=== PATIENT | male | born 1955 | race Hispanic/Latino ===

== ENCOUNTER 2019-02-14 07:18 | Emergency (ER) | payer OTHER, MEDICARE ==
[2019-02-15] MEDS ORDERED: METF-446 PO (16:33)
[2019-02-15] MEDS ORDERED: LEVO25TA54 PO (21:02)
[2019-02-15] MEDS ORDERED: AMLO1CAP11 PO (21:02)
[2019-02-15] MEDS ORDERED: TIMO5SOL10 OP (21:02)
[2019-02-15] MEDS ORDERED: OMEG-148 PO (21:02)
[2019-02-15] MEDS ORDERED: LIRA0.6P2 SQ (21:02)
[2019-02-15] MEDS ORDERED: EMPA10TA PO (21:02)
[2019-02-15] MEDS ORDERED: SIMV20TA6 PO (21:02)
== END 2019-02-14 08:35 | disposition home or self-care (01) ==
LOC: EDH 07:18
DX: S80.02XA Contusion of left knee, initial encounter (principal); S80.01XA Contusion of right knee, initial encounter; I10 Essential (primary) hypertension; E11.9 Type 2 diabetes mellitus without complications; E78.5 Hyperlipidemia, unspecified; Z72.0 Tobacco use; W18.39XA Other fall on same level, initial encounter; Y93.01 Activity, walking, marching and hiking; Y92.89 Other specified places as the place of occurrence of the external cause; Y99.8 Other external cause status

== ENCOUNTER → 2025-01-07 | Emergency (ER) | payer OTHER, MEDICARE, MEDICAID ==
[~2025-01-07] VITALS: Ht 157.5 cm; Wt 104.3 kg
[~2025-01-07] MED LIST: AMLO-73 PO; EMPA10TA PO; LEVO25TA54 PO; LIRA0.6P2 SQ; METF-446 PO; OMEG-148 PO; SIMV-43 PO; TIMO5SOL10 OP
--- NOTE | 2025-01-07 13:50 | EKG ---
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
[2025-01-07 14:14] LABS: BASOPHILS # (AUTO) 0.02 K/uL (0.00-0.20); BASOPHILS % (AUTO) 0.3 % (0.0-5.0); EOSINOPHILS # (AUTO) 0.09 K/uL (0.00-0.70); EOSINOPHILS % (AUTO) 1.4 % (0.0-8.0); HEMATOCRIT 41.5 % (42-54); IMMATURE GRANULOCYTE ABSOLUTE 0.01 K/uL (0-1); LYMPHOCYTES # (AUTO) 2.3 K/uL (1.0-4.8); LYMPHOCYTES % (AUTO) 36.4 % (21.0-51.0); MEAN CORPUSCULAR HEMOGLOBIN 27.3 pg (27.0-33.0); MEAN CORPUSCULAR VOLUME 82.8 fL (79-99); MONOCYTES # (AUTO) 0.5 K/uL (0.1-1.0); MONOCYTES % (AUTO) 7.6 % (3.0-13.0); NEUTROPHILS # (AUTO) 3.4 K/uL (1.8-7.7); NEUTROPHILS % (AUTO) 54.1 % (40.0-77.0); PLATELET COUNT (AUTO) 228 K/uL (130-400); RED BLOOD CELL COUNT(AUTO) 5.01 MIL/uL (4.50-6.20); RED CELL DISTRIBUTION WIDTH 14.3 % (11.0-15.5); WHITE BLOOD COUNT (AUTO) 6.2 K/uL (4.8-10.8)
[2025-01-07] MEDS: LACTATED RINGERS 1000ML 1,000 ML IV ONE (14:22)
[2025-01-07 14:25] LABS: CREATININE 0.6 mg/dL (0.5-1.3); INR 1.03 (0.85-1.15); POTASSIUM 3.8 mmol/L (3.5-5.1); PROTHROMBIN TIME 10.9 SEC (9.6-11.6)
[2025-01-07 14:26] LABS: PARTIAL THROMBOPLASTIN TIME 25.8 SEC (26.3-35.5)
[2025-01-07 14:30] LABS: MAGNESIUM 1.7 mg/dL (1.80-2.40)
[2025-01-07 14:44] LABS: B-TYPE NATRIURETIC PEPTIDE 17 pg/mL (0-100)
[2025-01-07 14:50] LABS: APPEARANCE,URINE CLEAR (CLEAR); BILIRUBIN,URINE NEGATIVE (NEGATIVE); COLOR,URINE YELLOW (YELLOW); GLUCOSE, URINE (UA) >=1000 mg/dL (NEGATIVE); KETONES,URINE 5 mg/dL (NEGATIVE); LEUKOCYTE ESTERASE ,URINE NEGATIVE Leu/uL (NEGATIVE); NITRATE,URINE NEGATIVE (NEGATIVE); OCCULT BLOOD,URINE NEGATIVE (NEGATIVE); PH,URINE 6.5 (5.0-8.0); PROTEIN,URINE 10 mg/dL (NEGATIVE)
[2025-01-07 15:20] LABS: ADD UA MICROSCOPIC YES
[2025-01-07 15:22] LABS: BACTERIA,URINE RARE /HPF (None Seen); MUCUS,URINE RARE LPF (None Seen); SQUAMOUS EPITHELIAL CELL,UR FEW /HPF (0-2); YEAST,URINE BUDDING FEW /HPF (None Seen)
[2025-01-07 15:35] VITALS: BP 158/76; PULSE 56; RESP 16; TEMP 98.3; O2SAT 98
--- NOTE | 2025-01-07 15:49 | HMCIMG ---
Exam Type: CHEST 1VW Clinical Information: vertigo Comparison: None Findings: The lungs are clear of infiltrates. The heart is normal in size. The bony and soft tissue structures of the chest are unremarkable. Impression: Clear lungs.
--- NOTE | 2025-01-07 15:52 | ERN ---
General Chief Complaint: Dizzy/Light Headed Stated Complaint: HIGH GLUCOSE, DIZZY Time Seen by MD: 13:18 Source: patient History of Present Illness Initial Comments Patient is a 69-year-old male coming in to be evaluated. For family member patient has been feeling sluggish ever since they discontinued one of his diabetic medications. Patient was evaluated urgent care and was found to have elevated blood glucose so I advised him to come to the ER to be evaluated. Patient is mentally incapacitated. Allergies: Coded Allergies: No Known Drug Allergies (Verified Allergy, Unknown, 02/15/19) Home Meds Reported Medications Liraglutide (Victoza 3-Fito) 0.6 Mg/0.1 Ml Pen.injctr, 1.8 MG SQ DAILY 02/15/19 Timolol Maleate (Timolol Maleate) 5 Ml Analisa.gel, 5 ML OP BID 02/15/19 Empagliflozin (Jardiance) 10 Mg Tablet, 10 MG PO DAILY, TAB 02/15/19 [place]-3S/Dha/Epa/Fish Oil (Fish Oil 1,000 mg Softgel) 1 Each Capsule, 1 EACH PO DAILY, CAP 02/15/19 Amlodipine Besylate/Benazepril (Amlodipine-Benazepril 5-10 mg) 1 Each Capsule, 1 EACH PO DAILY, CAP 02/15/19 Levothyroxine Sodium (Levothyroxine Sodium) 25 Mcg Tablet, 25 MCG PO DAILY, TAB 02/15/19 Simvastatin (Simvastatin) 20 Mg Tablet, 20 MG PO HS, TAB 02/15/19 Metformin HCl (Metformin HCl) 1,000 Mg Tablet, 1000 MG PO BID, TAB 02/15/19 Past Medical History Past Medical History: Diabetes-Type II, High Cholesterol, Hypertension Medical History Other: MENTAL DELAY PER SISTER Past Surgical History: None ROS Dictation CONSTITUTIONAL: No chills, no fever, weakness, no diaphoresis, no malaise. HEAD/FACE: No signs of trauma. EENT: No eye pain, no blurred vision, no tearing, no double vision, no ear pain, no ear discharge, no nose pain, no nasal congestion, no throat pain, no throat swelling, no mouth pain. RESPIRATORY: No cough, no orthopnea, no SOB, no stridor, no wheezing. CARDIOVASCULAR: No chest pain, no edema, no palpitations, no syncope. GASTROINTESTINAL/ABDOMINAL: No abdominal pain, no constipation, no diarrhea, no nausea, no vomiting. GENITOURINARY: No abnormal discharge, no dysuria, no frequent urination, no hematuria. No complaints of pain in the genitals. MUSCULOSKELETAL: No back pain, no gout, no joint pain, no joint swelling, no muscle pain, no muscle stiffness, no neck pain. INTEGUMENTARY: No change in color, no change in hair/nails, no dryness, no lesion, no lumps, no rash. NEUROLOGICAL/PSYCH: No anxiety, not depressed, no emotional problem, no headache, no numbness, no pre-existing deficit, no history of seizures, no tremors, no weakness. HEMATOLOGIC/LYMPHATIC: Not anemic, no history of blood clots, no apparent bleeding, no bruising, glands not swollen. All Systems Negative, Except as Noted. Physical Exam Physical Exam Dictation VITAL SIGNS: Reviewed. GENERAL APPEARANCE: Alert, oriented x3, no acute distress, obese. HEAD AND FACE: Non-traumatic. EYES: PERRL, pink conjunctivas, eyelid no trauma, anterior chamber clear. EARS: Pinnas intact and no signs of trauma or erythema. Ear canals clear and no discharge. TMs no erythema. NOSE: No discharge, no bleeding. OROPHARYNX: Mouth normal, teeth no caries, tongue pink. Pharynx clear, no erythema. Tonsils no exudates, no abscesses noted. Mucous membrane moist. NECK: Supple, non-tender, no thyromegaly, no masses, no JVD, no bruits. BREAST: Deferred. CHEST: No tenderness, no crepitus, no paradoxical movement, no retractions. LUNGS: Clear, well-ventilated, symmetric, no rales, no wheezing, no rhonchi, no stridor, good breath sounds bilaterally. HEART: Regular rate, regular rhythm, no murmur, no gallops. VASCULAR: No peripheral edema. ABDOMEN: Soft, positive bowel sounds, nondistended, no guarding, nontender, no rebound, no masses no hepatomegaly, no splenomegaly, no Mendez's sign, no hernias. RECTAL: Deferred. GENITAL: Deferred. NEUROLOGICAL: Normal speech, gross motor function intact, gross sensory function intact. MUSCULOSKELETAL: Neck nontender, full range of motion, back nontender, full range of motion. EXTREMITIES: Nontender, full range of motion. SKIN: Color pink, dry, no turgor, no rash, no lacerations, no abrasions, no contusions. LYMPHATICS: Deferred. Results Laboratory and Microbiology Lab and Micro Result Laboratory Tests Test 01/07/25 13:35 01/07/25 14:00 01/07/25 14:07 Whole Blood Glucose 290 MG/DL (70-110) H Urine Color YELLOW (YELLOW) Urine Appearance CLEAR (CLEAR) Urine pH 6.5 (5.0-8.0) Urine Specific [place] 1.036 (1.001-1.031) Urine Protein 10 mg/dL (NEGATIVE) H Urine Glucose (UA) >=1000 mg/dL (NEGATIVE) H Urine Ketones 5 mg/dL (NEGATIVE) H Urine Occult Blood NEGATIVE (NEGATIVE) Urine Nitrate NEGATIVE (NEGATIVE) Urine Bilirubin NEGATIVE mg/dL (NEGATIVE) Urine Urobilinogen 4.0 mg/dL (0.2-1.0) H Urine Leukocyte Esterase NEGATIVE Rony/uL Urine RBC 11-25 /HPF (0-1) H Urine WBC 6-10 /HPF (0-1) H Urine Squamous Epithelial Cells FEW /HPF (0-2) Urine Bacteria RARE /HPF (None Seen) Urine Yeast FEW /HPF (None Seen) White Blood Count 6.2 K/uL (4.8-10.8) Red Blood Count 5.01 MIL/uL (4.50-6.20) Hemoglobin 13.7 g/dL (14.0-18.0) L Hematocrit 41.5 % (42-54) L Mean Corpuscular Volume 82.8 fL (79-99) Mean Corpuscular Hemoglobin 27.3 pg (27.0-33.0) Mean Corpuscular Hemoglobin Concent 33.0 g/dL (32.0-36.0) Red Cell Distribution Width 14.3 % (11.0-15.5) Platelet Count 228 K/uL (130-400) Mean Platelet Volume 10.6 fL (7.5-10.5) H Immature Granulocyte % (Auto) 0.2 % (0-1) Neutrophils (%) (Auto) 54.1 % (40.0-77.0) Lymphocytes (%) (Auto) 36.4 % (21.0-51.0) Monocytes (%) (Auto) 7.6 % (3.0-13.0) Eosinophils (%) (Auto) 1.4 % (0.0-8.0) Basophils (%) (Auto) 0.3 % (0.0-5.0) Neutrophils # (Auto) 3.4 K/uL (1.8-7.7) Lymphocytes # (Auto) 2.3 K/uL (1.0-4.8) Monocytes # (Auto) 0.5 K/uL (0.1-1.0) Eosinophils # (Auto) 0.09 K/uL (0.00-0.70) Basophils # (Auto) 0.02 K/uL (0.00-0.20) Absolute Immature Granulocyte (auto 0.01 K/uL (0-1) Nucleated Red Blood Cells 0.0 % (0.0-0.19) Prothrombin Time 10.9 SEC (9.6-11.6) Prothromb Time International Ratio 1.03 (0.85-1.15) Activated Partial Thromboplast Time 25.8 SEC (26.3-35.5) L Sodium Level 131 mmol/L (136-145) L Potassium Level 3.8 mmol/L (3.5-5.1) Chloride Level 97 mmol/L (101-111) L Carbon Dioxide Level 29 mmol/L (21-32) Blood Urea Nitrogen 7 mg/dL (7-18) Creatinine 0.6 mg/dL (0.5-1.3) Glomerular Filtration Rate Calc 106 mL/min (>90) Random Glucose 288 mg/dL (70-105) H Total Calcium 8.8 mg/dL (8.5-10.1) Magnesium Level 1.70 mg/dL (1.80-2.40) L Total Creatine Kinase 99 U/L (21-232) # Troponin I High Sensitivity 8 ng/L (4-75) B-Type Natriuretic Peptide 17 pg/mL (0-100) Labs Reviewed?: Yes MDM MDM: Differential diagnosis: Generalized body weakness, dehydration, UTI, hypoglycemia, Patient is a 69-year-old male coming in to be evaluated for generalized body weakness. Patient does has a history of mentally incapacitation but family member is able to communicate with them. Per family member patient has been feeling weakness since diabetic medications it was discontinued. He still lives on one medication but per family member she believes that the elevated blood glucose RDI hydrating the patient. Patient was hydrated with IV fluids. We will be discharged in stable condition with a diagnosis of dehydration hyperglycemia. ED Course Orders Procedure Category Date Status Time Cbc With Differential LAB 01/07/25 Complete 13:44 Prothrombin Time With LAB 01/07/25 Complete INR 13:44 B-Type Natriuretic LAB 01/07/25 Complete Peptide 13:44 Chest 1vw RAD 01/07/25 Taken 13:44 12 Lead Ekg Tracing- EKG 01/07/25 Resulted Technical 13:44 Lactated Ringers PHA 01/07/25 Complete 1000ml (Lactated 14:00 Magnesium LAB 01/07/25 Complete 13:44 Creatine Kinase, Total LAB 01/07/25 Complete 13:44 Troponin I High LAB 01/07/25 Complete Sensitivity 13:44 Urinalysis Profile LAB 01/07/25 Complete 13:44 Partial LAB 01/07/25 Complete Thromboplastin Time 13:44 Basic Metabolic Panel LAB 01/07/25 Complete 13:44 Culture Urine ARMAND 01/07/25 Logged 15:26 Current Medications Medications (Trade) Dose Ordered Sig/Brenda Route PRN Reason Start Time Stop Time Status Last Admin Dose Admin Lactated Ringer's 1,000 ml @ 0 mls/hr ONCE ONCE IV 01/07/25 14:00 01/07/25 14:01 DC 01/07/25 14:22 Vital Signs Date Time Temp Pulse Resp B/P (MAP) Pulse Ox O2 Delivery O2 Flow Rate FiO2 01/07/25 15:35 98.2 56 16 158/76 98 Room Air* 0 21 01/07/25 14:14 97.9 64 14 154/72 98 Room Air* 0 21 01/07/25 13:19 98.6 99 16 133/62 97 Room Air 0 DX & DISP Disposition: Discharge Departure Impression: Primary Impression: Diabetes mellitus with hyperglycemia Additional Impression: Dehydration Condition: Stable Additional Instructions: FOLLOW-UP WITH PRIMARY CARE PROVIDER IN 1 TO 2 DAYS. TAKE MEDICATIONS DIRECTED HERE IN THE EMERGENCY ROOM. OKAY TO CONTINUE HOME MEDICATIONS UNLESS OTHERWISE DISCUSSED DURING YOUR VISIT IN THE EMERGENCY ROOM TODAY. RETURN TO YOUR NEAREST EMERGENCY ROOM IF SYMPTOMS WORSEN OR IF THERE IS NO IMPROVEMENT. CALL 911 IF YOU NEED IMMEDIATE ASSISTANCE. TAKE TYLENOL [id number] NEEDED AND IF NO CONTRAINDICATIONS ARE PRESENT. INCREASE ORAL HYDRATION. A WOUND CULTURE OR URINE CULTURE WAS ORDERED HERE IN THE EMERGENCY ROOM DEPARTMENT PLEASE FOLLOW-UP WITH PRIMARY CARE PROVIDER AND ADVISE THEM TO GET REPEAT PORTS FROM OUR FACILITY. IF YOU HAD ANY KO WRAP/SPLINTS THAT WERE APPLIED HERE, PLEASE DO NOT REMOVE THEM UNTIL YOU SEE YOUR PRIMARY CARE OR SPECIALTY. Referrals: Referrals: SHAMAR HARRELL (PCP) Time of Disposition: 15:52 GIULIANO WEBB MD Jan 07, 2025 15:52
--- NOTE | 2025-01-07 15:59 | NUR ---
PT STABLE NO DISTRESS, VITALS WNL NO C/O PAIN, DISCHARGE INSTRUCTIONS GIVEN TO SISTER AT BEDSIDE VERBALIZED UNDERSTANDING, IV WAS REMOVED CATHETER INTACT. PT TAKEN OUT IN W/C DRIVEN HOME BY SISTER. NO NEW RX AT THIS TIME.
== END ==
LOC: EEVIPCON 13:17 → EDH 13:17
DX: E11.65 Type 2 diabetes mellitus with hyperglycemia (principal); E86.0 Dehydration; I10 Essential (primary) hypertension; E78.00 Pure hypercholesterolemia, unspecified; R06.00 Dyspnea, unspecified; R55 Syncope and collapse; Z79.84 Long term (current) use of oral hypoglycemic drugs; Z79.85 Long-term (current) use of injectable non-insulin antidiabetic drugs; Z79.890 Hormone replacement therapy; Z79.899 Other long term (current) drug therapy
CPT/HCPCS: 99285; 82550; 83735; 84484; 80048; 83880; 85025; 85610; 85730; 87086; 82948; 81001; 36415; 71045; 93005; J7120

== ENCOUNTER 2025-03-21 21:12 | Emergency (ER) | payer OTHER, MEDICAID ==
[~2025-03-21] VITALS: Ht 154.9 cm; Wt 105.2 kg
[2025-03-21 21:48] LABS: AMPHET/METH SCREEN,URINE NEGATIVE (NEGATIVE); BARBITURATE SCREEN, URINE NEGATIVE (NEGATIVE); BENZODIAZEPINES SCREEN,URINE NEGATIVE (NEGATIVE); CANNABINOID SCREEN,URINE NEGATIVE (NEGATIVE); COCAINE SCREEN,URINE NEGATIVE (NEGATIVE); OPIATE SCREEN,URINE NEGATIVE (NEGATIVE); PHENCYCLIDINE SCREEN,URINE NEGATIVE (NEGATIVE)
[2025-03-21 21:57] LABS: BASOPHILS # (AUTO) 0.02 K/uL (0.00-0.20); BASOPHILS % (AUTO) 0.4 % (0.0-5.0); EOSINOPHILS # (AUTO) 0.18 K/uL (0.00-0.70); EOSINOPHILS % (AUTO) 3.4 % (0.0-8.0); HEMATOCRIT 38.2 % (42-54); IMMATURE GRANULOCYTE ABSOLUTE 0.01 K/uL (0-1); LYMPHOCYTES # (AUTO) 2.3 K/uL (1.0-4.8); LYMPHOCYTES % (AUTO) 44.2 % (21.0-51.0); MEAN CORPUSCULAR HEMOGLOBIN 27.8 pg (27.0-33.0); MEAN CORPUSCULAR VOLUME 84.1 fL (79-99); MONOCYTES # (AUTO) 0.6 K/uL (0.1-1.0); MONOCYTES % (AUTO) 11.9 % (3.0-13.0); NEUTROPHILS # (AUTO) 2.1 K/uL (1.8-7.7); NEUTROPHILS % (AUTO) 39.9 % (40.0-77.0); PLATELET COUNT (AUTO) 227 K/uL (130-400); RED BLOOD CELL COUNT(AUTO) 4.54 MIL/uL (4.50-6.20); RED CELL DISTRIBUTION WIDTH 14.3 % (11.0-15.5); WHITE BLOOD COUNT (AUTO) 5.2 K/uL (4.8-10.8)
[2025-03-21 22:10] LABS: CARBON DIOXIDE 24 mmol/L (21-32); CHLORIDE 105 mmol/L (101-111); CREATININE 0.4 mg/dL (0.5-1.3); GLOMERULAR FILTR. RATE CALC 120 mL/min (>90); GLUCOSE,RANDOM 175 mg/dL (70-105); SODIUM SERUM 137 mmol/L (136-145); UREA NITROGEN, BLOOD 10 mg/dL (7-18)
[2025-03-21 22:14] LABS: CREATINE KINASE, TOTAL 126 U/L (21-232)
[2025-03-21 22:17] LABS: ACETAMINOPHEN < 1 mcg/mL (10-29); ALCOHOL, BLOOD < 3 mg/dL (0-10); SALICYLATE < 2.8 mg/dL (2.8-20.0)
--- NOTE | 2025-03-21 22:28 | NUR ---
BOONE YEE CONTACTED TO INITIATED SCREENING
--- NOTE | 2025-03-21 22:41 | NUR ---
SCREENING CANCELLED PER DR ZAVALA
--- NOTE | 2025-03-21 23:30 | HMCIMG ---
CT HEAD/BRAIN W/O CONTRAST HISTORY: Encephalopathy COMPARISON: None TECHNIQUE: Multiple sequential axial images of the head were obtained from the base of the skull through vertex. Patient was not given contrast through intravenous route. FINDINGS: The ventricles and extraventricular CSF spaces are dilated consistent with cerebral atrophy. Nonspecific white matter changes seen. There is no midline shift, mass effect or herniation. No acute intracranial bleed is seen. Visualized portion of the paranasal sinuses are grossly within normal limits. IMPRESSION: 1. No acute intracranial bleed is seen. 2. Atrophy with white matter changes. CT was performed with one or more following dose reduction techniques: automated exposure control, adjustment of the mA and kv according to patient's size, or use of a iterative reconstruction technique.
[2025-03-21] MEDS ORDERED: RISP0.2515 PO (23:50)
--- NOTE | 2025-03-21 23:50 | ERN ---
General Chief Complaint: Psych Evaluation Stated Complaint: TRYING TO HURT HIMSELF Time Seen by MD: 21:20 History of Present Illness Initial Comments 69-year-old male presents for aggressive behavior and altered behavior over the last few months. According to the patient's sister, the patient has a history of developmental delay. She watches over him. She reports that over the last few months she has noticed that he is becoming a bit more paranoid, he seems much more confused, and he is not sleeping as well. No trauma. Patient has a no complaints. I guess today the patient was wandering outside and had a knife, he appeared to be confused according to the neighbors. With the neighbors called EMS and the patient was brought here for evaluation. On arrival here the patient has no complaints. He is not remember what happened. Patient is able to answer simple yes or no questions, and he is at baseline according to the family. Family is concerned that he is developing dementia. They are also concerned that he did have a brain injury about five years ago and wanted to make sure that there were no new signs of any head trauma or brain injuries or brain problems. Allergies: Coded Allergies: No Known Drug Allergies (Verified Allergy, Unknown, 02/15/19) Home Meds Reported Medications Liraglutide (Victoza 3-Fito) 0.6 Mg/0.1 Ml Pen.injctr, 1.8 MG SQ DAILY 02/15/19 Timolol Maleate (Timolol Maleate) 5 Ml Analisa.gel, 5 ML OP BID 02/15/19 Empagliflozin (Jardiance) 10 Mg Tablet, 10 MG PO DAILY, TAB 02/15/19 [place]-3S/Dha/Epa/Fish Oil (Fish Oil 1,000 mg Softgel) 1 Each Capsule, 1 EACH PO DAILY, CAP 02/15/19 Amlodipine Besylate/Benazepril (Amlodipine-Benazepril 5-10 mg) 1 Each Capsule, 1 EACH PO DAILY, CAP 02/15/19 Levothyroxine Sodium (Levothyroxine Sodium) 25 Mcg Tablet, 25 MCG PO DAILY, TAB 02/15/19 Simvastatin (Simvastatin) 20 Mg Tablet, 20 MG PO HS, TAB 02/15/19 Metformin HCl (Metformin HCl) 1,000 Mg Tablet, 1000 MG PO BID, TAB 02/15/19 Past Medical History Past Medical History: Diabetes-Type II, High Cholesterol, Hypertension Medical History Other: MENTAL DELAY PER SISTER Past Surgical History: Other Surgical History Other: HEAD DUE TO FALL 2019 ROS Dictation CONSTITUTIONAL: No chills, no fever, no weakness, no diaphoresis, no malaise. HEAD/FACE: No signs of trauma. EENT: No eye pain, no blurred vision, no tearing, no double vision, no ear pain, no ear discharge, no nose pain, no nasal congestion, no throat pain, no throat swelling, no mouth pain. RESPIRATORY: No cough, no orthopnea, no SOB, no stridor, no wheezing. CARDIOVASCULAR: No chest pain, no edema, no palpitations, no syncope. GASTROINTESTINAL/ABDOMINAL: No abdominal pain, no constipation, no diarrhea, no nausea, no vomiting. GENITOURINARY: No abnormal discharge, no dysuria, no frequent urination, no hematuria. No complaints of pain in the genitals. MUSCULOSKELETAL: No back pain, no gout, no joint pain, no joint swelling, no muscle pain, no muscle stiffness, no neck pain. INTEGUMENTARY: No change in color, no change in hair/nails, no dryness, no lesion, no lumps, no rash. NEUROLOGICAL/PSYCH: No anxiety, not depressed, no emotional problem, no headache, no numbness, no pre-existing deficit, no history of seizures, no tremors, no weakness. HEMATOLOGIC/LYMPHATIC: Not anemic, no history of blood clots, no apparent bleeding, no bruising, glands not swollen. All Systems Negative, Except as Noted. Physical Exam Physical Exam Dictation VITAL SIGNS: Reviewed. GENERAL APPEARANCE: Alert, oriented, baseline mentation HEAD AND FACE: Non-traumatic. EYES: PERRL, pink conjunctivas, eyelid no trauma, anterior chamber clear. EARS: Pinnas intact and no signs of trauma or erythema. Ear canals clear and no discharge. TMs no erythema. NOSE: No discharge, no bleeding. OROPHARYNX: Mouth normal, teeth no caries, tongue pink. Pharynx clear, no e rythema. Tonsils no exudates, no abscesses noted. Mucous membrane moist. NECK: Supple, non-tender, no thyromegaly, no masses, no JVD, no bruits. BREAST: Deferred. CHEST: No tenderness, no crepitus, no paradoxical movement, no retractions. LUNGS: Clear, well-ventilated, symmetric, no rales, no wheezing, no rhonchi, no stridor, good breath sounds bilaterally. HEART: Regular rate, regular rhythm, no murmur, no gallops. VASCULAR: No peripheral edema. ABDOMEN: Soft, positive bowel sounds, nondistended, no guarding, nontender, no rebound, no masses no hepatomegaly, no splenomegaly, no Mendez's sign, no hernias. RECTAL: Deferred. GENITAL: Deferred. NEUROLOGICAL: Normal speech, gross motor function intact, gross sensory function intact. MUSCULOSKELETAL: Neck nontender, full range of motion, back nontender, full range of motion. EXTREMITIES: Nontender, full range of motion. SKIN: Color pink, dry, no turgor, no rash, no lacerations, no abrasions, no contusions. LYMPHATICS: Deferred. Results Laboratory and Microbiology Lab and Micro Result Laboratory Tests Test 03/21/25 21:31 03/21/25 21:50 Urine Opiates Screen NEGATIVE (NEGATIVE) Urine Barbiturates Screen NEGATIVE (NEGATIVE) Urine Phencyclidine Screen NEGATIVE (NEGATIVE) Urine Amphetamines Screen NEGATIVE (NEGATIVE) Urine Benzodiazepines Screen NEGATIVE (NEGATIVE) Urine Cocaine Screen NEGATIVE (NEGATIVE) Urine Marijuana (THC) Screen NEGATIVE (NEGATIVE) White Blood Count 5.2 K/uL (4.8-10.8) Red Blood Count 4.54 MIL/uL (4.50-6.20) Hemoglobin 12.6 g/dL (14.0-18.0) L Hematocrit 38.2 % (42-54) L Mean Corpuscular Volume 84.1 fL (79-99) Mean Corpuscular Hemoglobin 27.8 pg (27.0-33.0) Mean Corpuscular Hemoglobin Concent 33.0 g/dL (32.0-36.0) Red Cell Distribution Width 14.3 % (11.0-15.5) Platelet Count 227 K/uL (130-400) Mean Platelet Volume 9.9 fL (7.5-10.5) Immature Granulocyte % (Auto) 0.2 % (0-1) Neutrophils (%) (Auto) 39.9 % (40.0-77.0) L Lymphocytes (%) (Auto) 44.2 % (21.0-51.0) Monocytes (%) (Auto) 11.9 % (3.0-13.0) Eosinophils (%) (Auto) 3.4 % (0.0-8.0) Basophils (%) (Auto) 0.4 % (0.0-5.0) Neutrophils # (Auto) 2.1 K/uL (1.8-7.7) Lymphocytes # (Auto) 2.3 K/uL (1.0-4.8) Monocytes # (Auto) 0.6 K/uL (0.1-1.0) Eosinophils # (Auto) 0.18 K/uL (0.00-0.70) Basophils # (Auto) 0.02 K/uL (0.00-0.20) Absolute Immature Granulocyte (auto 0.01 K/uL (0-1) Nucleated Red Blood Cells 0.0 % (0.0-0.19) Sodium Level 137 mmol/L (136-145) Potassium Level 4.0 mmol/L (3.5-5.1) Chloride Level 105 mmol/L (101-111) Carbon Dioxide Level 24 mmol/L (21-32) Blood Urea Nitrogen 10 mg/dL (7-18) Creatinine 0.4 mg/dL (0.5-1.3) L Glomerular Filtration Rate Calc 120 mL/min (>90) Random Glucose 175 mg/dL (70-105) H Total Calcium 8.7 mg/dL (8.5-10.1) Total Creatine Kinase 126 U/L (21-232) # Salicylates Level < 2.8 mg/dL (2.8-20.0) L Acetaminophen Level < 1 mcg/mL (10-29) L Serum Alcohol < 3 mg/dL (0-10) MDM CC: Aggressive behavior and altered mentation Historian: Family due to patient's cognitive to light Limitations by social determinants of health: None Comorbidities: Diabetes high cholesterol hypertension Differential diagnosis: Metabolic abnormality, infection, brain injury, dementia new onset Vital signs: Mild hypertension otherwise stable Clinical exam is unremarkable. Cranial nerves are all intact, no signs of trauma, he has that has baseline mentation. Labs show no leukocytosis no anemia. Chemistry panel normal. CK normal. Tox screen negative. CT head per my independent interpretation shows chronic change has been no acute abnormalities EKG shows a sinus rhythm rate of 67 normal axis good R-wave progression with stable intervals. No STEMI. There was some sort of event prior to the patient's arrival here with a knife, I discussed this with the family and the patient. There does not appear to be any concerns with the patient's going to hurt himself or anybody else. He had. The just been confused. I did consider getting the patient evaluated by yeni, but after discussion with the daughter this does not seem necessary. The patient is calm and appears alert. We suspect that the patient is having some dementia. They are currently working up as an outpatient with the primary doctor for this. Since the patient has been having some aggressive behavior and some sleep disturbances, we will give a low dose of risperidone to use as needed at home. Treatment in the ER included IV fluids, and a prescription for risperidone. No other major changes. Plan will be to DC the patient home to PCP follow up. Labs independently interpreted by me. CT head independently interpreted by me. EKG independently interpreted by me. ED Course Orders Procedure Category Date Status Time Cbc With Differential LAB 03/21/25 Complete 21:22 Alcohol, Blood LAB 03/21/25 Complete 21:22 Salicylate LAB 03/21/25 Complete 21:22 Acetaminophen LAB 03/21/25 Complete 21:22 12 Lead Ekg Tracing- EKG 03/21/25 Logged Technical 21:22 Creatine Kinase, Total LAB 03/21/25 Complete 21:22 Basic Metabolic Panel LAB 03/21/25 Complete 21:22 Drug Screen Urine LAB 03/21/25 Complete 21:22 Ct Head/Brain W/O CT 03/21/25 Resulted Contrast 22:40 Vital Signs Date Time Temp Pulse Resp B/P (MAP) Pulse Ox O2 Delivery O2 Flow Rate FiO2 03/21/25 21:14 98.4 64 16 171/80 99 Room Air DX & DISP Disposition: Discharge Departure Impression: Primary Impression: Altered behavior Additional Impression: Dehydration Condition: Stable Scripts Risperidone (Risperidone) 0.25 Mg Tablet 1 TAB PO HS for 30 Days, #30 TAB 0 Refills Prov: OSCAR ZAVALA DO 03/21/25 Additional Instructions: There are no dangerous findings on your workup here today. As we discussed, Juno's behaviors may be related to dementia. I recommend that you continue to follow up with your primary doctor regarding further evaluation and treatment. The CT scan of the brain shows chronic changes but no acute or new abnormalities. The blood work was unremarkable. For sleep disturbance and aggressive behavior, I have prescribed a low dose of risperidone. I recommend giving this nightly before bed. This often helps with sleep. If he does become aggressive during the day you can also give him a daytime dose. Do not give more than two doses daily. Please return to the emergency department if you have any concerns. Referrals: CLAUDIO SCHMITT (PCP) OSCAR ZAVALA DO March 21, 2025 23:50
[2025-03-22] MEDS: LACTATED RINGERS 1000ML 1,000 ML IV ONE (00:05)
[2025-03-22 00:15] VITALS: BP 141/75; PULSE 53; RESP 16; TEMP 97.9; O2SAT 99
--- NOTE | 2025-03-22 06:31 | EKG ---
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
== END 2025-03-22 01:14 | disposition home or self-care (01) ==
LOC: EDH 21:12
DX: R40.4 Transient alteration of awareness (principal); E86.0 Dehydration; E78.00 Pure hypercholesterolemia, unspecified; I10 Essential (primary) hypertension; Z79.84 Long term (current) use of oral hypoglycemic drugs; Z79.85 Long-term (current) use of injectable non-insulin antidiabetic drugs; Z79.890 Hormone replacement therapy; Z79.899 Other long term (current) drug therapy
CPT/HCPCS: 99284; 70450; 82550; 80048; 80305; 85025; 36415; 93005; G0481; J7120